=== PATIENT | female | born 1990 | race Caucasian/White ===

== ENCOUNTER 2021-08-16 04:25 | Emergency (ER) | payer OTHER ==
[~2021-08-16] VITALS: Ht 165.1 cm; Wt 79.4 kg
[2021-08-16 04:29] VITALS: BP 132/80
--- NOTE | 2021-08-16 04:29 | NUR ---
TO BED AMBULATORY
--- NOTE | 2021-08-16 04:35 | NUR ---
Dr. Cardona examining patient.
--- NOTE | 2021-08-16 04:35 | NUR ---
RECEIVED IN BED 6 WITH C/O ASTHMA ATTACK. PT SAID THIS IS HER 3RD VISIT TO ER IN 2 WEEKS, THAT SHE IS ASLEEP AND SUDDENLY WAKES UP WITH DIFFICULTY BREATHING AND WHEEZING. INSPIRATORY AND EXPIRATORY WHEEZES NOTED THROUGHOUT A & P. SPEAKS IN CHOPPY SENTENCES, TRIPODING
[2021-08-16] MEDS ORDERED: ALBUTEROL 0.083% 2.5 MG/3 ML NEBU INH ONE (04:40)
[2021-08-16] MEDS ORDERED: IPRATROPIUM 0.02% 0.5 MG/2.5 ML NEBU INH ONE (04:40)
[2021-08-16] MEDS ORDERED: DEXAMETHASONE 10 MG/ML VIAL IM ONE (04:40)
--- NOTE | 2021-08-16 04:49 | NUR ---
Respiratory Therapist at bedside for respiratory intervention.
[2021-08-16] MEDS ORDERED: ALBU-118 INH (05:32)
--- NOTE | 2021-08-16 05:40 | NUR ---
RT COMPLETED AT THIS TIME. LUNGS WITH DECREASED WHEEZING. PT ABLE TO SPEAK MORE CLEARLY
[2021-08-16 05:49] VITALS: BP 132/80
--- NOTE | 2021-08-16 05:49 | NUR ---
Patient discharged with v/s stable. Written and verbal after care instructions given and explained. Patient alert, oriented and verbalized understanding of instructions. Ambulatory with steady gait. All questions addressed prior to discharge. ID band removed. Patient advised to follow up with PMD. Rx of ALBUTEROL SULFATE given. Patient educated on indication of medication including possible reaction and side effects. Opportunity to ask questions provided and answered.
== END 2021-08-16 05:49 | disposition home or self-care (01) ==
LOC: MED 04:25
DX: J45.901 Unspecified asthma with (acute) exacerbation (principal)
CPT/HCPCS: 99283; J1100; J7613; J7644; 96372